=== PATIENT | female | born 1980 | race Caucasian/White ===

== ENCOUNTER 2017-11-28 17:40 | Emergency (ER) | payer BC, OTHER ==
[2017-11-28] MEDS: 0.9 % SODIUM CHLORIDE 1,000 ML IV ONE (18:10)
[2017-11-28 18:30] LABS: BASOPHILS % 0.4 (0.0-1.5); MEAN CORPUSCULAR HEMOGLOBIN 30.4 pg (28.0-34.0); MEAN CORPUSCULAR VOLUME 86.6 fl (80.0-100.0); MONOCYTES % 5.3 % (0.0-11.0); NEUTROPHILS # 6.8 # k/uL (1.4-7.7)
[2017-11-28] MEDS: KETOROLAC TROMETHAMINE 30 MG/1ML VIAL IVP ONE (18:39)
[2017-11-28] MEDS: METOCLOPRAMIDE HCL 5 MG TABLET PO ONE (18:39)
[2017-11-28] MEDS: ONDANSETRON HCL/PF 4 MG/ 2ML VIAL IVP ONE (18:39)
[2017-11-28] MEDS: ONDANSETRON HCL/PF 4 MG/ 2ML VIAL ONE (18:39)
[2017-11-28 18:40] LABS: eGFR (African) > 60; eGFR (Non-African) > 60
[2017-11-28] MEDS: HYOSCYAMINE SULFATE 0.125 MG TAB.SUBL SL SCH (18:40)
--- NOTE | 2017-11-28 19:15 | Diagnostic Imaging Report ---
HANNAH ALDRICH [facility] [address] [facility] [address] 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 There is a questionable incomplete nondisplaced fracture of the volar aspect of the base of the middle phalanx, please correlate clinically . Impression: Dorsal dislocation of the distal interphalangeal joint of the right 4th finger . Questionable fracture nondisplaced of the volar aspect of the base of the middle phalanx, please correlate clinically Electronically signed on Nov 28, 2017 6:18:23 PM PORTABLE CANTEEN OPERATOR by: Jarrod VOSS
--- NOTE | 2017-11-28 19:36 | Diagnostic Imaging Report ---
HANNAH ALDRICH [facility] [address] [facility] [address] 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 There is no pleural effusion or pneumothorax. Heart size and pulmonary vascularity are normal. Osseous structures are unremarkable. Impression: Normal chest. Electronically signed on Nov 28, 2017 7:34:53 PM SUPERVISOR [employer] by: Lakhwinder VOSS
--- NOTE | 2017-11-28 20:28 | ED Physician Documentation ---
Abdominal Pain - HISTORIAN Historian: patient - HPI Stated Complaint: N/V Flank pain Chief Complaint: Abdominal Pain Onset: other (started this am) Duration: waxing, waning Timing: still present Context: denies: out of country travel, bad food, recent trauma Severity: moderate Quality: cramping Associated Symptoms: chills, nausea, vomiting, diarrhea Exacerbated by: nothing Relieved by: nothing Further Comments: no - ROS CONST: no problems GI/: other (n/v/d) CVS/RESP: none EYES/ENT: none MS/SKIN/LYMPH: other (muscle aches) NEURO/PSYCH: none - SOCIAL HX Smoking History: non-smoker, quit greater than 1 year Alcohol Use: none Drug Use: none - FAMILY HX Family History: no significant history - PAST HX Past History: other (depression) Ischemic Bowel Risk Factors: none Other History: none Surgeries/Procedures: Immunizations: referred to PCP Allergies/Adverse Reactions: Allergies Allergy/AdvReac Type Severity Reaction Status Date / Time aspirin Allergy Intermediate Verified 11/28/17 18:07 - VITAL SIGNS Vital Signs: Vital Signs Temp Pulse Resp BP Pulse Ox 97.8 F 70 16 103/68 99 11/28/17 20:30 11/28/17 20:30 11/28/17 20:30 11/28/17 20:30 11/28/17 20:30 - REVIEWED ASSESSMENTS Nursing Assessment Reviewed: Yes Vitals Reviewed: Yes Progress - Results/Orders Results/Orders: cbc, cmp, ua, trop, ekg, ct abd/pelvis, cxr ordered - Progress Progress: Pt. given 1 liter NS, 10 mg Reglan p.o., .25 mg hyoscyamine p.o., 8 mg Zofran ivp and Toradol 30 mg ivp in ER with resolution of symptoms. Critical Care Note - Critical Care Note Total Time (mins): 0 ED Results Lab/Radiology - Lab Results Lab Results: Lab Results 11/28/17 11/28/17 11/28/17 19:38 18:15 18:15 WBC 11.20 K/ul K/ul (4.00-12.00) RBC 4.55 M/ul M/ul (3.90-5.20) Hgb 13.8 g/dL g/dL (12.0-16.0) Hct 39.4 % % (34.5-46.5) MCV 86.6 fl fl (80.0-100.0) MCH 30.4 pg pg (28.0-34.0) MCHC 35.1 g/dL g/dL (30.0-36.0) RDW 12.5 % % (11.3-14.3) Plt Count 256 K/mm3 K/mm3 (130-400) Neut % (Auto) 60.9 % % (39.0-79.0) Lymph % (Auto) 29.7 % % (16.0-50.0) Crook % (Auto) 5.3 % % (0.0-11.0) Eos % (Auto) 2.0 % % (0.0-6.8) Baso % (Auto) 0.4 (0.0-1.5) Neut # (Auto) 6.8 # k/uL # k/uL (1.4-7.7) Lymph # (Auto) 3.3 # k/uL # k/uL (0.6-4.0) Crook # (Auto) 0.6 # k/uL # k/uL (0.0-0.9) Eos # (Auto) 0.2 # k/uL # k/uL (0.0-0.6) Baso # (Auto) 0.0 # k/uL # k/uL (0.0-0.5) Reactive Lymphs % 1.7 % % (0.0-5.0) Reactive Lymphs # 0.2 # k/uL # k/uL (0.0-0.8) Sodium 140 mmol/L mmol/L (136-145) Potassium 3.8 mmol/L mmol/L (3.5-5.1) Chloride 104 mmol/L mmol/L (98-107) Carbon Dioxide 24 mmol/L mmol/L (22-30) BUN 10 mg/dL mg/dL (7-17) Creatinine 0.70 mg/dL mg/dL (0.52-1.04) Estimated Creat Clear 149 Est GFR ( Amer) > 60 (60 - ) Est GFR (Non-Af Amer) > 60 (60 - ) Glucose 89 mg/dL mg/dL (74-106) Calcium 9.0 mg/dL mg/dL (8.4-10.2) Total Bilirubin 0.6 mg/dL mg/dL (0.2-1.3) AST 18 U/L U/L (15-46) ALT 28 U/L U/L (13-69) Alkaline Phosphatase 56 U/L U/L (38-126) Troponin I < 0.03 ng/mL L ng/mL (0.03-0.06) Total Protein 7.1 g/dL g/dL (6.3-8.2) Albumin 4.1 g/dL g/dL (3.5-5.0) Lipase 58 U/L U/L (23-300) Urine Color Urine Appearance Urine pH Ur Specific [place] Urine Protein Urine Ketones Urine Occult Blood Urine Nitrite Urine Bilirubin Urine Urobilinogen Ur Leukocyte Esterase Urine Glucose Urine HCG, Qual 11/28/17 18:13 WBC RBC Hgb Hct MCV MCH MCHC RDW Plt Count Neut % (Auto) Lymph % (Auto) Crook % (Auto) Eos % (Auto) Baso % (Auto) Neut # (Auto) Lymph # (Auto) Crook # (Auto) Eos # (Auto) Baso # (Auto) Reactive Lymphs % Reactive Lymphs # Sodium Potassium Chloride Carbon Dioxide BUN Creatinine Estimated Creat Clear Est GFR ( Amer) Est GFR (Non-Af Amer) Glucose Calcium Total Bilirubin AST ALT Alkaline Phosphatase Troponin I Total Protein Albumin Lipase Urine Color Yellow (YELLOW) Urine Appearance Clear (CLEAR) Urine pH 6.0 (5.0 - 8.0) Ur Specific [place] >=1.030 H (1.010-1.030) Urine Protein Negative mg/dL mg/dL (NEGATIVE) Urine Ketones Negative mg/dL mg/dL (NEGATIVE) Urine Occult Blood Negative (NEGATIVE) Urine Nitrite Negative (NEGATIVE) Urine Bilirubin Negative (NEGATIVE) Urine Urobilinogen 0.2 Eu Eu (0.2-1.0) Ur Leukocyte Esterase Negative (NEGATIVE) Urine Glucose Negative mg/dL mg/dL (NEGATIVE) Urine HCG, Qual Negative (NEGATIVE) - Radiology Radiology Impressions: cxr neg, ct abd/pelvis neg - Orders Orders: ED Orders Category Date Time Status Place IV Lock 1T Care 11/28/17 18:03 Active CHEST 1 VIEW [RAD] Routine Exams 11/28/[address] ABD & PELVIS W/O CON Stat Exams 11/28/17 Completed CBC/PLATELET/DIFF Routine Lab 11/28/17 18:15 Completed CMP Routine Lab 11/28/17 18:15 Completed LIPASE Routine Lab 11/28/17 18:15 Completed TROPONIN I (cTnI) Routine Lab 11/28/17 19:38 Completed UA MACRO DIP ONLY Routine Lab 11/28/17 18:13 Completed URINE HCG Routine Lab 11/28/17 18:13 Completed 0.9 % Sodium Chloride [Normal Saline] 1,000 ml Med 11/28/17 18:01 Discontinued IV Q1H Hyoscyamine Sulfate [Oscimin Sl] Med 11/28/17 19:00 Discontinued 0.25 mg SL Q6H Ketorolac Tromethamine [Toradol] Med 11/28/17 18:01 Discontinued 30 mg IVP NOW ONE Metoclopramide HCl [Reglan] Med 11/28/17 18:28 Discontinued 10 mg PO NOW ONE Ondansetron HCl/Pf [Zofran 4 mg/2 ml] Med 11/28/17 18:19 Discontinued 4 mg .ROUTE .STK-MED ONE Ondansetron HCl/Pf [Zofran 4 mg/2 ml] Med 11/28/17 18:25 Discontinued 8 mg IVP NOW ONE EKG WITH COMPARISON Routine Ther 11/28/17 Ordered Abdominal Pain Physical Exam - Physical Exam General Appearance: alert, mild distress EENT: eye inspection normal, ENT inspection normal, pharynx normal, no signs of dehydration, LEELEE, no nystagmus, TM's nml NECK: normal inspection, thyroid normal, supple RESPIRATORY: no resp distress, chest non-tender, breath sounds normal CVS: reg rate & rhythm, heart sounds normal, equal pulses, no murmur, no gallop , PMI nml, no JVD, no friction rub ABDOMEN: soft, no organomegaly, normal bowel sounds, no abdominal bruit, no distension, tenderness (generalized) BACK: normal inspection, no CVA tenderness SKIN: warm/dry, normal color EXTREMITIES: non-tender, normal range of motion, no evidence of injury, no edema NEURO: oriented X3, CN's nml as tested, motor nml, sensation nml, mood/affect nml, cognition normal Vital Signs: Vital Signs Temp Pulse Resp BP Pulse Ox 97.8 F 70 16 103/68 99 11/28/17 20:30 11/28/17 20:30 11/28/17 20:30 11/28/17 20:30 11/28/17 20:30 Discharge Clincal Impression: Gastroenteritis Referrals: Primary Doctor,No [Primary Care Provider] - 2 Days Comments: Discharged in stable condition with script for Lomotil #101 pill 4x/angela as needed for diarrhea. Also has Zofran 4 mg at home and is to use 1 pill 4x/day as needed for nausea/vomiting. Also given script fo hyoscyamine 0.125 mg 2 p.o. qid prn abd. pain #15 generic on both scripts, no refill. Condition: Stable Disposition: 01 HOME, SELF-CARE Decision to Admit: NO Decision Time: 20:26
[2017-11-28 21:28] VITALS: BP 103/68
[2017-11-29 06:45] LABS: APPEARANCE,URINE CLEAR (CLEAR); COLOR,URINE YELLOW (YELLOW); OCCULT BLOOD,URINE NEGATIVE (NEGATIVE); URINE HCG NEGATIVE (NEGATIVE); UROBILINOGEN URINE 0.2 Eu (0.2-1.0)
== END 2017-11-28 20:30 | disposition home or self-care (01) ==
LOC: ED 17:40
DX: K52.9 Noninfective gastroenteritis and colitis, unspecified (principal)
CPT/HCPCS: 71010; 74176; 80053; 81002; 81025; 83690; 84484; 85025; 93005; A9270; J1885; J2405; J7030; 96365; 96375; 99283; S1016

== ENCOUNTER 2018-08-01 05:48 | Emergency (ER) | payer BC, OTHER ==
--- NOTE | 2018-08-01 06:16 | ED Physician Documentation ---
Sore Throat/Dental Pain - HISTORIAN Historian: patient - HPI Stated Complaint: Sore throat Chief Complaint: Sore Throat Onset: days ago (3) Context: Possible Infection Associated Symptoms: sore throat, moderate, runny nose, cough. denies: fever, chills, unable to swallow, congestion, R ear pain, L ear pain, swollen glands Worsened By: nothing Further Comments: yes (she reports 3 days ago she started with sinus drainge. She now has a sore throat . No fever. She states every time she gets this type of sore throat the lining in her esophogus comes out. She feels the throat is raw. No sick contacts. It hurts to swallow food. She is able to swallow. She reports when she has vomiting she is spitting up her lining of her throat. When asked if she is nauseated she reports this is when she coughs and what comes up with the cough. She is a smoker. She is using OTC meds for cough and sore throat) - ROS CONST: no problems CVS/RESP: none NEURO/PSYCH: denies: headache - PAST HX Past History: none Immunizations: referred to PCP Allergies/Adverse Reactions: Allergies Allergy/AdvReac Type Severity Reaction Status Date / Time aspirin Allergy Severe Tremors Verified 08/01/18 06:12 - SOCIAL HX Smoking History: cigarettes Alcohol Use: none Drug Use: none - FAMILY HX Family History: No - VITAL SIGNS Vital Signs: Vital Signs Temp Pulse Resp BP Pulse Ox 98.9 F 108 H 16 129/81 97 08/01/18 05:50 08/01/18 05:50 08/01/18 05:50 08/01/18 05:50 08/01/18 05:50 - REVIEWED ASSESSMENTS Nursing Assessment Reviewed: Yes Vitals Reviewed: Yes ED Results Lab/Radiology - Orders Orders: ED Orders Category Date Time Status methylPREDNISolone ACETATE [Depo-Medrol] Med 08/01/18 06:22 Once 80 mg IM NOW ONE Sore throat Physical Exam - EXAM General Appearance: no acute distress, alert Head/Neck: head nml inspection, thyroid nml. No: no lymphadenopathy, pain over sinuses, cervical lymphadenopathy, stiff neck Eyes: eyes nml inspection Mouth/Throat: lips nml, gums nml, voice nml, no drooling, no air way problems, pharyngeal erythema Ear/Nose: nml inspection Respiratory: no resp. distress, breath sounds nml CVS: reg. rate & rhythm, heart sounds nml Abdomen: soft Extremities: non-tender Skin: warm/dry, normal color Neuro/Psych: oriented x3 Discharge Clincal Impression: Sore throat Referrals: Primary Doctor,No [Primary Care Provider] - 2 Days Additional Instructions: 1. Azithromycin (zpack) take as directed 2. Medrol dose pack as directed 3. Warm salt water gargles 4. Increase fluids 5. Tylenol or Ibuprofen for pain as directed 6. See PCP in 2-4 days 7. Return to ER for any concerns Condition: Stable Disposition: 01 HOME, SELF-CARE Decision to Admit: NO Date of Decison to Admit: 08/01/18 Decision Time: 06:34
[2018-08-01] MEDS ORDERED: methylPREDNISolone ACETATE 80 MG/ML VIAL IM ONE (06:22)
[2018-08-01 06:51] VITALS: BP 132/78
== END 2018-08-01 06:40 | disposition home or self-care (01) ==
LOC: ED 05:48
DX: J02.9 Acute pharyngitis, unspecified (principal)
CPT/HCPCS: 96372; J1040

== ENCOUNTER 2019-09-09 19:08 | Emergency (ER) | payer BC, OTHER ==
[2019-09-09] MEDS ORDERED: KETOROLAC TROMETHAMINE 60 MG/2 ML VIAL IM ONE (19:19)
[2019-09-09] MEDS ORDERED: ORPHENADRINE CITRATE 60 MG/2 ML ML IM ONE (19:19)
[2019-09-09] MEDS ORDERED: methylPREDNISolone SOD SUCC 125 MG/2 ML VIAL IM ONE (19:19)
--- NOTE | 2019-09-09 19:19 | ED Physician Documentation ---
Low Back Pain - HISTORIAN Historian: patient - HPI Stated Complaint: low back pain Chief Complaint: Low Back Pain/ Injury Additional Information: Patient presents to ED with low back pain since this am. Patient states she woke up with the low back pain this morning. The pain is worse with sitting to standing and vice versa. She state the pain began to radiate down her right leg this evening so she came in. Patient reports chronic low back pain x 10 years. She denies any recent injury. History: back pain Onset: hours (12) Duration: continues in ED Recent Injury: No Where: home Severity: moderate Quality: sharp, similar- prior back pain Associated Symptoms: denies: fever, chills, nausea, vomiting, problems urinating Worsened By:: supine, upright position, movement to RT flexion, movement to LT flexion, cough, deep breaths Relieved By: nothing - ROS CONST: no problems CVS/RESP: denies: shortness of breath EYES/ENT: none MS/SKIN/LYMPH: none Neuro/Psych: denies: headache GI/: denies: abdominal pain - PAST HX Past History: back pain Surgeries/Procedures: none Allergies/Adverse Reactions: Allergies Allergy/AdvReac Type Severity Reaction Status Date / Time aspirin Allergy Severe Tremors Verified 08/01/18 06:12 - SOCIAL HX Smoking History: non-smoker Alcohol Use: none Drug Use: none - FAMILY HX Family History: no significant history - VITAL SIGNS Vital Signs: Vital Signs Temp Pulse Resp BP Pulse Ox 132/78 08/01/18 06:40 - REVIEWED ASSESSMENTS Nursing Assessment Reviewed: Yes Vitals Reviewed: Yes ED Results Lab/Radiology - Orders Orders: ED Orders Category Date Time Status Ketorolac Tromethamine [Toradol] Med 09/09/19 19:19 Once 60 mg IM NOW ONE Orphenadrine Citrate [Norflex] Med 09/09/19 19:19 Once 60 mg IM NOW ONE methylPREDNISolone SOD SUCC [SOLU-Medrol] Med 09/09/19 19:19 Once 125 mg IM NOW ONE Low Back Pain/Injury - Physical Exam General Appearance: no acute distress, alert EENT: LEELEE Neck: painless ROM Resp/CVS: chest non-tender, breath sounds nml, heart sounds nml Abdomen: non-tender Back: non-tender, muscle spasm (right posterior iliac spine, bilateral erector spinae). No: vertebral point-tendernes Straight Leg Raising: Negative Left, Positive Right Neuro/Psych: oriented x3, sensation nml, reflexes nml Skin: warm/dry, normal color Extremities: non-tender, normal range of motion, no evidence of injury Discharge Clincal Impression: Acute exacerbation of chronic low back pain Referrals: Primary Doctor,No [Primary Care Provider] - 2 Days Additional Instructions: 1. Start Medrol dose pack on 09/10/19 2. Norflex every 12 hours as needed for muscle spasm/pain 3. Tylenol 650mg every 4 hours as needed for pain. Tramadol every 8 hours as needed for break through pain. 4. Apply Biofreeze, icy hot, aspercreme or bengay as needed for comfort 5. Apply ice/heat to affected areas as needed for comfort 6. Stay active. Walk at a brisk pace for 10 minutes every 8 hours 7. Follow up with PCP within 1 week 8. Return to ER for new or worsening symptoms Condition: Stable Disposition: 01 HOME, SELF-CARE Decision to Admit: NO Date of Decison to Admit: 09/09/19 Decision Time: 19:30
[2019-09-09 19:51] VITALS: BP 132/78
== END 2019-09-09 19:36 | disposition home or self-care (01) ==
LOC: ED 19:08
DX: G89.29 Other chronic pain (principal); M54.5 Low back pain
CPT/HCPCS: 96372; 99282; 99284; J1885; J2930; J2360

== ENCOUNTER 2019-09-15 08:41 | Outpatient (CLI) | payer BC, OTHER ==
--- NOTE | 2019-09-15 10:45 | Diagnostic Imaging Report ---
PATIENT MR#: [id number] PATIENT PATIENT NAME: RANJANA MATIAS DATE OF : 1980 REFERRING PHYSICIAN: Marika Michel EXAM DATE: 09/15/2019 ACCESSION NUMBER: [id number] EXAM DESCRIPTION: L SPINE 6 VIEWS CLINICAL HISTORY: LUMBARGO, LUMBAR RADICULOPATHY VS RADICULITIS, B SACROLITIS, LSR. COMPARISON: No relevant comparison is available at the time of interpretation. L-SPINE XRAY, 7 views including obliques and flexion - extension: Vertebral bodies: No compression deformities. Disc spaces: Normal height. Facets: Intact. Alignment: Mild lumbar levoscoliosis centered at L4. Normal lumbar lordosis without listhesis. Abdomen: Cholecystectomy clips. IMPRESSION: Mild lumbar levoscoliosis. Read by: Dr. Guanaco Sauer Transcribed by: Guanaco Sauer Transcribed Date: 09/15/2019 10:44:11 AM Electronically signed by: Dr. Guanaco Sauer Date signed: 09/15/2019 10:44:11 AM
--- NOTE | 2019-09-15 10:47 | Diagnostic Imaging Report ---
PATIENT MR#: [id number] PATIENT PATIENT NAME: RANJANA MATIAS DATE OF : 1980 REFERRING PHYSICIAN: Marika Michel EXAM DATE: 09/15/2019 ACCESSION NUMBER: [id number] EXAM DESCRIPTION: PELVIS AP 1 OR 2 VIEWS CLINICAL HISTORY: LUMBAGO, LUMBAR RADICULOPATHY VS RADICULITIS, B SACROLITIS, LSR. COMPARISON: No relevant comparison is available at the time of interpretation. PELVIS XRAY, FRONTAL VIEW: Pelvic bone: Intact appearance. Pelvic soft tissues: Bilateral pelvic phleboliths. Hips: No fracture or dislocation. IMPRESSION: Normal pelvis. Read by: Dr. Guanaco Sauer Transcribed by: Guanaco Sauer Transcribed Date: 09/15/2019 10:46:50 AM Electronically signed by: Dr. Guanaco Sauer Date signed: 09/15/2019 10:46:50 AM
[2019-09-15 11:57] LABS: BASOPHILS % 0.8 % (0.0-1.5); NEUTROPHILS # 12.8 # k/uL (1.4-7.7); SEGMENTED NEUTROPHILS % 67 % (39-79)
[2019-09-15 12:02] LABS: eGFR (Non-African) > 60
--- NOTE | 2019-09-21 15:39 | CONSULTATION REPORT ---
DATE OF VISIT: 09/15/2019 CHIEF COMPLAINT: Low back pain. HISTORY OF PRESENT ILLNESS: Shiela is a 39-year-old female patient presenting for initial evaluation of low back pain. The patient tells me that she has had low back pain intermittently for approximately 10 years. Her pain worsened approximately one week ago. Now she describes her low back pain as constant aching, pressure-like and twitching at times. She has been experiencing radiation into the right lower extremity posteriorly down to the ankle. She denies numbness, tingling, lower extremity weakness, urinary incontinence/bowel incontinence or saddle anesthesia. Her pain is worse with walking and sitting too long. Her pain improves with repositioning, hot packs and hot showers. Recent treatment, the patient was seen in the emergency department on 09/09/2019. At that time, they gave her IM injections of ketorolac, Norflex and Solu-Medrol. On discharge they did prescribe the patient tramadol, a Medrol Dosepak and Norflex. The steroid pack has improved her leg pain, she is not experiencing it at all now. She is taking the Norflex and tramadol very, very rarely. The patient has not participated in any physical therapy in the last year, child care nor has she had injections or interventions for her back pain. The patient has not had any recent diagnostic imaging. We will obtain that today. PAST MEDICAL HISTORY: Includes back pain and anxiety. PAST SURGICAL HISTORY: Includes x3 in 1999, 2003 and 2014 as well as a cholecystectomy in 2004. 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 Number of pregnancies is four, live births is three, miscarriages/abortions the patient has notated one false . Tobacco use is past, vaper/e-cig is past. No ETOH or recreational drugs. DRUG ALLERGIES: Include aspirin, had a seizure at a young age and opiate pain medication makes the patient have GI upset, nausea, vomiting. CURRENT MEDICATIONS: Tramadol 50 mg one p.o. t.i.d. p.r.n. pain, Norflex ER 100 mg one q.12 hours, p.r.n. muscle spasms FAMILY HISTORY: Mother with cancer and a CVA, father with cancer and heart disease. REVIEW OF SYSTEMS: A complete 14-point review of systems was completed. GI positive for right lower quadrant abdominal pain. Neuro positive for anxiety/depression. Musculoskeletal positive for low back pain. OBJECTIVE: General: This is a well-developed, well-nourished female patient presenting in no acute distress at the time of examination. Vital Signs: The patient is 5 feet 6 inches tall, weighs 185 pounds. Temperature is 98.7, pulse is 83, respiratory rate is 18, blood pressure 131/80 with an SaO2 of 99% on room air. Pain today is rated 1/10. Psych: She is alert and oriented x3. She is calm, pleasant and cooperative. HEENT: She is normocephalic and atraumatic. Sclerae clear. Pupils are equal and round without miosis. Trachea is midline. There is no lymphadenopathy or thyromegaly. CV: Normal S1, S2. Regular rate and rhythm. No murmurs, gallops, or rubs. Pulmonary: Clear to auscultation bilaterally throughout. GI: Abdomen is soft, round, nondistended and nontender with bowel sounds present in all four quadrants. : Deferred. Musculoskeletal: The patient achieves full trunk flexion with pain on returning to the upright position. She also achieves full trunk extension with axial low back pain. Bilateral Church's is positive for axial low back pain only. The patient is tender to palpation about the L3-L4, L4-L5 and L5-S1 levels as well as over the lumbar paraspinals. She is tender to palpation over bilateral SI joints, left greater than right. She is nontender over bilateral greater trochanteric bursas. Bilateral lower extremity strength is graded 5/5 in hip flexion, knee extension, knee flexion, dorsiflexion and plantar flexion. Patellar deep tendon reflexes bilaterally are 2+ and brisk. Neurologic: Cranial nerves II through XII are grossly intact. The patient walks with a slightly antalgic gait. Sensation to light touch is intact bilateral lower extremities. ASSESSMENT: 1. Lumbago. 2. Lumbar radiculopathy versus radiculitis, improved. 3. Bilateral sacroiliitis, left greater than right. PLAN: 1. I am going to obtain x-ray AP pelvis 2. X-ray L spine series with flexion, extension. 3. The patient is going to consult for REKHA. 4. I have provided the patient with a prescription for naproxen 500 mg p.o. b.i.d. with food, dispense #60 with two refills. The patient is to stop this if she notices any GI upset. 5. The patient is to follow up in one month or sooner if needed. 6. Refer patient for primary care to Dr. Hernandez. The patient verbalizes understanding and agrees to the current treatment plan. RADHA Bassetturse Practitioner /[employer] [id number].RTF stuart VOSS
== END 2019-09-15 09:41 ==
LOC: OUT 08:41
PROVIDERS: ATTEND Nurse Practitioner Adult Health
DX: M54.5 Low back pain (principal); M46.1 Sacroiliitis, not elsewhere classified
CPT/HCPCS: 36415; 72170; 80053; 85025; 99203

== ENCOUNTER 2019-09-22 16:16 | Outpatient (CLI) | payer BC, OTHER ==
[2019-09-22 16:59] LABS: BASOPHILS % 0.5 % (0.0-1.5)
[2019-09-22 17:00] LABS: SEGMENTED NEUTROPHILS % 73 % (39-79)
== END 2019-09-22 16:21 ==
LOC: LAB 16:16
PROVIDERS: ATTEND Nurse Practitioner Adult Health
DX: D72.829 Elevated white blood cell count, unspecified (principal)
CPT/HCPCS: 36415; 85025

== ENCOUNTER 2019-09-30 09:49 | Day surgery (SDC) | payer BC, OTHER ==
[~2019-09-30 09:49] MED LIST: KETOROLAC TROMETHAMINE 30 MG/1ML VIAL ONE; LACTATED RINGERS 1,000 ML IV.SOLN IV ONE; LIDOCAINE HCL 2% PF 100MG/5ML VIAL IJ ONE; MIDAZOLAM HCL 2 MG/2 ML VIAL ONE; PROPOFOL 500 MG/50 ML VIAL IV ONE; SEVOFLURANE 250 ML LIQUID IH ONE
== END 2019-09-30 13:00 | disposition home or self-care (01) ==
LOC: OPSURG 09:49
PROVIDERS: ATTEND Specialist
DX: M99.15 Subluxation complex (vertebral) of pelvic region (principal); M70.62 Trochanteric bursitis, left hip; M76.11 Psoas tendinitis, right hip; M47.27 Other spondylosis with radiculopathy, lumbosacral region
CPT/HCPCS: 22505; 27198; 27275; J1885; J2001; J2250; J2704; J7120

== ENCOUNTER 2019-10-01 10:12 | Day surgery (SDC) | payer BC, OTHER | END 2019-10-01 13:05 | disposition home or self-care (01) | LOC: OPSURG 10:12 | PROVIDERS: ATTEND Specialist | DX: M99.15 Subluxation complex (vertebral) of pelvic region (principal); M70.62 Trochanteric bursitis, left hip; M76.11 Psoas tendinitis, right hip; M47.27 Other spondylosis with radiculopathy, lumbosacral region | CPT/HCPCS: 22505; 27194; 27275; J1885; J2001; J2250; J2704; J7120 ==

== ENCOUNTER 2019-10-02 09:03 | Day surgery (SDC) | payer BC, OTHER ==
[~2019-10-02 09:03] MED LIST changes: +DEXAMETHASONE SOD PHOS 4 MG/ML VIAL ONE; +ONDANSETRON HCL/PF 4 MG/ 2ML VIAL ONE; +PHENYLEPHRINE HCL 10 MG/1 ML ONE; +PROPOFOL 200 MG/20 ML VIAL IV ONE; -PROPOFOL 500 MG/50 ML VIAL IV ONE
== END 2019-10-02 11:58 | disposition home or self-care (01) ==
LOC: OPSURG 09:03
PROVIDERS: ATTEND Specialist
DX: M99.15 Subluxation complex (vertebral) of pelvic region (principal); M70.62 Trochanteric bursitis, left hip; M76.11 Psoas tendinitis, right hip; M47.27 Other spondylosis with radiculopathy, lumbosacral region
CPT/HCPCS: 22505; 27198; 27275; J1100; J1885; J2001; J2250; J2370; J2405; J2704; J7120

== ENCOUNTER 2019-10-06 09:44 | Outpatient (CLI) | payer BC, OTHER ==
--- NOTE | 2019-10-08 14:28 | OP Clinic Progress Note ---
DATE OF VISIT: 10/06/2019 CHIEF COMPLAINT: Low back pain. HISTORY OF PRESENT ILLNESS: Shiela is a 39-year-old female patient here for followup, status post REKHA on 09/30/2019, 10/01/2019 and 10/02/2019 to treat her symptoms. The patient tells me that her pain symptoms are approximately 75% improved. The patient has not started her post-procedure physical therapy and I advised the patient that if she does not hear from scheduling about the therapy to please call us back by the beginning of next week. The patient has continued on naproxen 500 mg p.o. b.i.d. as needed with improvement in her pain symptoms. She also has been using warm packs with improvement in her pain symptoms. She denies any medication side effects or concerns at this time. OBJECTIVE: General: This is a well-developed, well-nourished female patient presenting in [facility]. Vital Signs: The patient is 5 feet 6 inches tall, weighs 190 pounds. Temperature is 97.3, pulse 101, respiratory rate 20, blood pressure 126/79 with an SaO2 of 96% on room air. She is rating her pain at 0/10 today. Psych: She is alert and oriented x3. She is calm, pleasant and cooperative. HEENT: She is normocephalic and atraumatic. Pupils are equal and round without miosis. Sclerae clear. Musculoskeletal: The patient has mild tenderness to palpation over the lower lumbar spine area as well as with mild tenderness to palpation over the SI joints. Neurologic: Cranial nerves II through XII are grossly intact. The patient walks with a steady gait. ASSESSMENT: 1. Lumbago, improved status post REKHA. 2. Sacroiliitis bilaterally, improved status post REKHA. PLAN: 1. The patient is to proceed with post-procedure physical therapy as ordered. 2. The patient is to follow up as needed. The patient verbalizes understanding and agrees with the current treatment plan. RADHA Bassetturse Practitioner /[employer] [id number].RTF jrd [email or web address]
== END 2019-10-06 10:45 ==
LOC: OUT 09:44
PROVIDERS: ATTEND Nurse Practitioner Adult Health
DX: Z04.1 Encounter for examination and observation following transport accident (principal)
CPT/HCPCS: 99212